=== PATIENT | male | born 1980 | race African-American/Black ===

== ENCOUNTER 2016-12-25 12:33 | Emergency (ER) | payer SELFPAY ==
[2016-12-25] MEDS ORDERED: HYDROCODONE/ACETAMINOPHEN 5-325 MG TABLET PO ONE (13:32)
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
[2016-12-25] MEDS ORDERED: HYDROMORPHONE HCL INJ/PF 2 MG/ML AMPULE IV ONE (13:54)
--- NOTE | 2016-12-25 14:18 | RADIOLOGY REPORT (SQ) ---
EXAM DESCRIPTION: ANKLE LEFT COMPLETE COMPLETED DATE/TIME: 12/25/2016 2:00 pm REASON FOR STUDY: ankle injury COMPARISON: None. NUMBER OF VIEWS: Three views. TECHNIQUE: AP, lateral, and oblique radiographic images acquired of the left ankle. LIMITATIONS: None. FINDINGS: MINERALIZATION: Normal. BONES: There is obliquely oriented fractures through the lateral malleolus of the distal fibula (Webe r a). There is minimal displacement of the fracture fragment is relation to each other. No other fr actures are identified. No dislocations. Degenerative osteophyte formation noted on the talus and t he adjacent navicular bone. JOINTS: No effusions. SOFT TISSUES: There is soft tissue swelling about the ankle/foot. OTHER: No other significant finding. IMPRESSION: Obliquely oriented fracture of the distal fibula (probable Bailey a). No other fractures identified. There is significant soft tissue swelling about the ankle. Degenerative changes of the hindfoot. TECHNICAL DOCUMENTATION: JOB ID: [id number] [employer]- All Rights Reserved
[2016-12-25 15:35] VITALS: BP 152/82
== END 2016-12-25 15:35 | disposition home or self-care (01) ==
LOC: ER 12:33
PROC: 2W3RX1Z Immobilization of Left Lower Leg using Splint (ICD-10-PCS; principal; 2016-12-25)
DX: S82.832A Other fracture of upper and lower end of left fibula, initial encounter for closed fracture (principal); M25.572 Pain in left ankle and joints of left foot; X58.XXXA Exposure to other specified factors, initial encounter; F17.210 Nicotine dependence, cigarettes, uncomplicated
CPT/HCPCS: 99283; 96374; 73610; 29515; J1170

== ENCOUNTER → 2017-07-22 | Outpatient (CLI) | payer SELFPAY ==
[2017-07-22 08:27] LABS: COLLECTION METHOD DRY COLLECTION; SPECIMEN CONTAINER POLYPROPYLENE CUP; SPERM MORPHOLOGY SENT TO REFERENC LAB
[2017-07-22 09:25] LABS: COLLECTION SITE ON-SITE; DAYS ABSTINENT 5 DAYS (2-7); SEMEN TESTING TIME 845
[2017-07-22 09:26] LABS: ROUND CELL CONC. 0.5 X10^6/mL (<5.1); SA DILUTION CNT 1 42; SA DILUTION CNT 2 50; SA DILUTION FACTOR 2; SA NONMOTILE CONCENTRATION 5.1 X10^6/mL; SA NONMOTILE COUNT1 54; SA NONMOTILE COUNT2 48; SA ROUND CELL COUNT1 5; SA ROUND CELL COUNT2 5; SA SPERM MOTILE CONC 4.1 X10^6mL; SPERM CONCENTRATION 9.2 X10^6/mL (>12.0); TOTAL SPERM COUNT 36.8 X10^6 (>33.0)
[2017-07-22 09:31] LABS: SPERM PROGRESSION 3
== END ==
LOC: LAB 07:58
PROVIDERS: ATTEND Specialist
DX: N46.9 Male infertility, unspecified (principal)
CPT/HCPCS: 36415; 89320

== ENCOUNTER 2018-10-16 01:52 | Emergency (ER) | payer SELFPAY ==
[2018-10-16 02:16] VITALS: BP 175/97
--- NOTE | 2018-10-16 02:51 | ER Document Report ---
Addendum entered and electronically signed by NI FERREIRA PA-C 10/16/18 03:06: Discharge - Discharge Clinical Impression: Tinea pedis Qualifiers: Laterality: bilateral Qualified Code(s): B35.3 - Tinea pedis Epicondylitis elbow, medial Qualifiers: Laterality: left Qualified Code(s): M77.02 - Medial epicondylitis, left elbow Condition: Good Disposition: HOME, SELF-CARE Instructions: Athletes Foot ([facility]), Medial Epicondylitis ([facility]) Additional Instructions: Home and rest medication as prescribed. Also as we talked about get a spray can of Lamisil is on your feet daily and sometimes twice a day or as directed by the can. Take your medication as prescribed. As we also discussed when you are home your feet air out and get some sunshine. Try to keep them dry as possible so after shower dry them thoroughly. As far as the elbow goes this is an overuse kind of injury as of indicated you writing left-handed will aggravate it all is well as using hammers or nail pounding motions would do the same. Ice down when you get home at night from work highly suggest a elbow band or pad to give you some support when use. Should you have any concerns or problems return to ER for recheck. Prescriptions: Fluconazole [Diflucan] 150 mg PO ASDIR #10 tablet Prednisone 10 mg PO ASDIR 6 Days #1 tab.ds.pk Forms: Elevated Blood Pressure, Return to Work Original Note: ED Skin Rash/Insect Bite/Abscs - General Chief Complaint: Rash Stated Complaint: FOOT RASH/LEFT ELBOW PAIN Time Seen by Provider: 10/16/18 02:37 Primary Care Provider: MARCEL NICHOLSON MD [Primary Care Provider] - Follow up as needed Mode of Arrival: Ambulatory Information source: Patient Notes: Patient is a 37-year-old male comes emergency room today with 2 complaints. First complaint is he has a rash on his feet and second 1 is he has left elbow pain. 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 He is ambidextrous he writes with his left hand and he does everything else with his right hand. His complaint is on his left elbow where he does most of his writing. Patient also states for the past 2 to 3 months he has had worsening foot condition that it is exceptionally itchy and foul-smelling. Patient does wear leather work boots that have no area out to them. And he does admit that that his feet are in moderate and water a lot sometimes. Denies any other medical problems. TRAVEL OUTSIDE OF THE [place] IN LAST 30 DAYS: No - HPI Patient complains to provider of: Skin rash/lesion, Tender/swollen area Onset: Other - Both for several weeks Onset/Duration: Gradual, Persistent, Worse Quality of pain: Burning, Sharp, Stabbing, Throbbing Severity: Moderate Pain Level: 3 Skin Character: Erythema, Patchy, Thickening, Warm Skin Temperature: Warm Quality of rash: Itchy Identify cause: Yes - Tinea pedis Exacerbated by: Denies Relieved by: Denies Similar symptoms previously: Yes Recently seen / treated by doctor: No - Related Data Allergies/Adverse Reactions: No Known Allergies Allergy (Verified 12/28/11 20:16) Past Medical History - General Information source: Patient - Social History Smoking Status: Never Smoker Cigarette use (# per day): No Chew tobacco use (# tins/day): No Smoking Education Provided: No Frequency of alcohol use: None Drug Abuse: None Family History: Reviewed & Not Pertinent, Arthritis, CVA, Hypertension. denies: CAD, DM, Hyperlipidemia, Malignancy, Thyroid Disfunction Patient has suicidal ideation: No Patient has homicidal ideation: No Renal/ Medical History: Denies: Hx Peritoneal Dialysis Musculoskeletal Medical History: Denies Hx Arthritis, Reports Hx Musculoskeletal Deformity, Reports Hx Musculoskeletal Trauma - left foot left toe right arm Skin Medical History: Reports Hx Cellulitis Traumatic Medical History: Reports: Hx Fractures - Immunizations Immunizations up to date: No Hx Diphtheria, Pertussis, Tetanus Vaccination: No Review of Systems - Review of Systems Constitutional: No symptoms reported EENT: No symptoms reported Cardiovascular: No symptoms reported Respiratory: No symptoms reported Gastrointestinal: No symptoms reported Genitourinary: No symptoms reported Male Genitourinary: No symptoms reported Musculoskeletal: See HPI, Joint pain, Muscle pain Skin: See HPI, Rash Hematologic/Lymphatic: No symptoms reported Neurological/Psychological: No symptoms reported -: Yes All other systems reviewed and negative Physical Exam - Vital signs Vitals: Temp Pulse Resp BP Pulse Ox 98.1 F 63 16 175/97 H 98 10/16/18 02:10 10/16/18 02:10 10/16/18 02:10 10/16/18 02:10 10/16/18 02:10 Interpretation: Hypertensive - Notes Notes: PHYSICAL EXAMINATION: GENERAL: Well-appearing, well-nourished and in no acute distress. HEAD: Atraumatic, normocephalic. EYES: Pupils equal round and reactive to light, extraocular movements intact, sclera anicteric, conjunctiva are normal. ENT: Nares patent, oropharynx clear without exudates. Moist mucous membranes. NECK: Normal range of motion, supple without lymphadenopathy LUNGS: Breath sounds clear to auscultation bilaterally and equal. No wheezes rales or rhonchi. HEART: Regular rate and rhythm without murmurs Musculoskeletal: Patient's area of concern is his left elbow. In anatomic position patient patient on palms up patient has pain on his medial epicondyle of the elbow. Point tenderness is noted to palpation. Increased pain in the specific epicondyle spot against resistance is noted as well. This is patient's right knee and hand and exaggeration of the right heel is causing discomfort and pain as well. Patient has good vascular exam with good cap refill in the nailbeds of the fingers of the left hand. Has good delivery assistant strength noted. NEUROLOGICAL: Cranial nerves grossly intact. Normal speech, normal gait. Normal sensory, motor exams PSYCH: Normal mood, normal affect. SKIN: Examination of the feet show a notable presentation of tinea pedis. Patient's feet bilaterally appear to have been wet and damp and then out of sunlight for a while. Patient has crustiness on top of his feet with the redness next to the soles from the sides of the soles. There is also cracking in between thetoes. Course - Vital Signs Vital signs: Temp Pulse Resp BP Pulse Ox 98.1 F 63 16 175/97 H 98 10/16/18 02:10 10/16/18 02:10 10/16/18 02:10 10/16/18 02:10 10/16/18 02:10 Discharge - Discharge Clinical Impression: Tinea pedis Qualifiers: Laterality: bilateral Qualified Code(s): B35.3 - Tinea pedis Epicondylitis elbow, medial Qualifiers: Laterality: left Qualified Code(s): M77.02 - Medial epicondylitis, left elbow Condition: Good Disposition: HOME, SELF-CARE Instructions: Athletes Foot ([facility]), Medial Epicondylitis ([facility]) Additional Instructions: Home and rest medication as prescribed. Also as we talked about get a spray can of Lamisil is on your feet daily and sometimes twice a day or as directed by the can. Take your medication as prescribed. As we also discussed when you are home your feet air out and get some sunshine. Try to keep them dry as possible so after shower dry them thoroughly. As far as the elbow goes this is an overuse kind of injury as of indicated you writing left-handed will aggravate it all is well as using hammers or nail pounding motions would do the same. Ice down when you get home at night from work highly suggest a elbow band or pad to give you some support when use. Should you have any concerns or problems return to ER for recheck. Prescriptions: Fluconazole [Diflucan] 150 mg PO ASDIR #10 tablet Prednisone 10 mg PO ASDIR 6 Days #1 tab.ds.pk Forms: Elevated Blood Pressure, Return to Work
== END 2018-10-16 03:15 | disposition home or self-care (01) ==
LOC: ER 01:52
DX: B35.3 Tinea pedis (principal); M77.02 Medial epicondylitis, left elbow
CPT/HCPCS: 99282

== ENCOUNTER 2018-11-13 07:07 | Emergency (ER) | payer SELFPAY ==
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
--- NOTE | 2018-11-13 08:26 | RADIOLOGY REPORT (SQ) ---
EXAM DESCRIPTION: HAND RIGHT 3 VIEWS COMPLETED DATE/TIME: 11/13/2018 8:06 am REASON FOR STUDY: right hand swelling/pain COMPARISON: None. EXAM PARAMETERS: NUMBER OF VIEWS: Three views. TECHNIQUE: AP, lateral and oblique radiographic images acquired of the right hand. LIMITATIONS: None. FINDINGS: MINERALIZATION: Normal. BONES: No acute fracture or dislocation. No worrisome bone lesions. JOINTS: No effusions. SOFT TISSUES: Soft tissue swelling. No foreign body. OTHER: No other significant finding. IMPRESSION: SOFT TISSUE SWELLING. NO BONY FINDINGS. TECHNICAL DOCUMENTATION: JOB ID: [id number] [employer]- All Rights Reserved Reading location - IP/workstation name: [email or web address]
[2018-11-13 09:55] LABS: ABSOLUTE EOSINOPHILS # (AUTO) 0.1 10^3/uL (0.0-0.6); ABSOLUTE LYMPHOCYTES (AUTO) 1.4 10^3/uL (0.5-4.7); ABSOLUTE MONOCYTES (AUTO) 0.9 10^3/uL (0.1-1.4); ABSOLUTE NEUT (AUTO) 9.7 10^3/uL (1.7-8.2); BASOPHILS % (AUTO) 0.2 % (0-2); EOSINOPHILS % (AUTO) 0.9 % (0-6); HEMATOCRIT 43.9 % (37.9-51.0); HEMOGLOBIN 14.5 g/dL (13.5-17.0); LYMPHOCYTES % (AUTO) 11.9 % (13-45); MEAN CORPUSCULAR VOLUME 91 fl (80-97); MONOCYTES % (AUTO) 7.4 % (3-13); PLATELET COUNT 255 10^3/uL (150-450); RED BLOOD COUNT 4.84 10^6/uL (4.35-5.55); RED CELL DISTRIBUTION WIDTH 14.1 % (11.5-14.0); SEGMENTED NEUTROPHILS % (AUTO) 79.6 % (42-78); TOTAL CELLS COUNTED % (AUTO) 100 %; WHITE BLOOD COUNT 12.2 10^3/uL (4.0-10.5)
[2018-11-13] MEDS ORDERED: AMMONIA INHALANTS 10 AMPUL/BOX IH ONE ×2 (10:16→10:17)
[2018-11-13 10:17] LABS: ALANINE AMINOTRANSFERASE 38 U/L (21-72); ALKALINE PHOSPHATASE 77 U/L (38-126); ANION GAP 10 (5-19); ASPARTATE AMINO TRANSFERASE 30 U/L (17-59); BILIRUBIN,DIRECT 0.2 mg/dL (0.0-0.4); BILIRUBIN,TOTAL 0.4 mg/dL (0.2-1.3); BLOOD UREA NITROGEN 7 mg/dL (7-20); CALCIUM 9.4 mg/dL (8.4-10.2); CARBON DIOXIDE 27 mmol/L (22-30); CHLORIDE 109 mmol/L (98-107); GLUCOSE 102 mg/dL (75-110); SODIUM 145.7 mmol/L (137-145); TOTAL PROTEIN 6.9 g/dL (6.3-8.2)
[2018-11-13 10:18] LABS: C-REACTIVE PROTEIN < 5.0 mg/L (<10.0)
[2018-11-13 10:32] LABS: URINE AMPHETAMINES SCREEN NEGATIVE; URINE BARBITURATES SCREEN NEGATIVE; URINE BENZODIAZEPINES SCREEN NEGATIVE; URINE COCAINE SCREEN NEGATIVE; URINE MARIJUANA (THC) SCREEN NEGATIVE; URINE METHADONE SCREEN NEGATIVE; URINE PHENCYCLIDINE SCREEN NEGATIVE
[2018-11-13 10:46] LABS: ERYTHROCYTE SEDIMENTATION RATE 8 mm/hr (0-15)
[2018-11-13] MEDS ORDERED: CLINDAMYCIN 900 MG/D5W RTU 900 MG/50 ML RTUPB IV ONE ×2 (11:50→18:00)
[2018-11-13] MEDS ORDERED: HYDROMORPHONE HCL INJ/PF 2 MG/ML AMPULE IV ONE (14:20)
--- NOTE | 2018-11-13 14:27 | ER Document Report ---
Doctor's Note Notes: 11/13/18 14:25 I was asked by the nurse practitioner to come see this patient to decide what to do with his hand. I was told that the patient was refusing any and all treatment and was going to leave AMA. When I saw the patient he was sleeping and very difficult to arouse at all. He did appear to possibly be under the influence of some sort of sedating substance. He did slightly arouse to the painful stimulation of attempting to extend the right third finger. The hand is swollen and most of the discomfort and problem seems to be originating in the third palm are flexor tendon region. I did advise the nurse practitioner that the patient should not be allowed to leave AMA, this is a very high risk situation that should be treated with IV antibiotics and obtain an MRI, and to involuntarily restrain if necessary. I was informed that several hours later the patient began to wake up, was alert and oriented, and was agreeable to getting the MRI done.
--- NOTE | 2018-11-13 14:38 | RADIOLOGY REPORT (SQ) ---
EXAM DESCRIPTION: MRI RT UPPER EXTREMITY COMBO COMPLETED DATE/TIME: 11/13/2018 1:47 pm REASON FOR STUDY: hand swelling, pain, unknown injury COMPARISON: None. CONTRAST TYPE AND DOSE: 15 mL Dotarem. RENAL FUNCTION: None required. The patient is less than 50 years old. TECHNIQUE: Right hand images acquired and stored on PACS. Multiplanar images before and after contr ast include fat sensitive sequences as T1, fluid sensitive sequences as FST2/STIR, cartilage sensitiv e sequences as FSPD, gradient echo sequences. FINDINGS: There is a palmar subcutaneous abscess at the level of the 3rd digit proximal phalanx whic h measures 1 cm AP x 9 mm craniocaudad by 1.7 cm transverse. There is adjacent enhancement of the co mmon flexor tendon sheath in some mild increased tendon signal to the level of the mid 3rd metacarpal . Diffuse subcutaneous swelling and enhancement throughout the metacarpal phalangeal region. Questi onable marrow enhancement in the 3rd proximal phalanx but difficult to fully characterize given field inhomogeneity artifact. . IMPRESSION: There is a palmar subcutaneous abscess at the level of the 3rd digit proximal phalanx wh ich measures 1 cm AP x 9 mm craniocaudad by 1.7 cm transverse. There is adjacent enhancement of the common flexor tendon sheath in some mild increased tendon signal to the level of the mid 3rd metacarp al. Diffuse subcutaneous swelling and enhancement throughout the metacarpal phalangeal region. Quest ionable marrow enhancement in the 3rd proximal phalanx but difficult to fully characterize given fiel d inhomogeneity artifact. COMMENT: Consider hand surgical consultation. TECHNICAL DOCUMENTATION: JOB ID: [id number] [place]-72 2010 [employer]- All Rights Reserved Reading location - IP/workstation name: [email or web address]
[2018-11-13] MEDS ORDERED: NICOTINE 21 MG/24 HR PATCH.TD24 TD ONE (15:31)
[2018-11-13] MEDS ORDERED: MORPHINE SULFATE 10 MG/ML INJ IV ONE (19:39)
[2018-11-13 19:46] VITALS: BP 154/91
== END 2018-11-13 19:50 | disposition short-term general hospital (02) ==
LOC: ER 07:07
DX: M79.641 Pain in right hand (principal); L03.113 Cellulitis of right upper limb; M65.9 Synovitis and tenosynovitis, unspecified; R40.0 Somnolence; F17.200 Nicotine dependence, unspecified, uncomplicated
CPT/HCPCS: 99285; 96375; 96365; 96366; 36415; 87040; 80307 ×2; 85025; 85652; 86140; 80053; 73220; 73130; A9576; J3490; J2270

== ENCOUNTER 2019-04-10 01:03 | Emergency (ER) | payer BC ==
--- NOTE | 2019-04-10 02:43 | RADIOLOGY REPORT (SQ) ---
EXAM DESCRIPTION: XR FINGERS COMPLETED DATE/TME: 04/10/2019 00:00 CLINICAL HISTORY: 38 years Male, bone pain and swelling COMPARISON: None. Findings: Moderate swelling of the left second finger. Bones, joints, and soft tissues of the LEFT XR FINGERS three views appear otherwise unremarkable. IMPRESSION: Swelling.
[2019-04-10] MEDS ORDERED: KETOROLAC TROMETHAMINE 60 MG/2 ML SDV IM ONE (04:19)
--- NOTE | 2019-04-10 04:25 | ER Document Report ---
HPI - HPI Time Seen by Provider: 04/10/19 04:03 Pain Level: 5 Context: Patient is a 38-year-old male that comes emergency department for chief complaint of left index finger pain and swelling. 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 He has not taken anything for it. He denies any other locations of pain. He is still able to bend finger. He denies redness of the finger or bleeding recently from the finger. He denies fever or chills. He denies IV drugs. He denies any daily medications or diagnosed medical problems. He denies any other complaints. - CONSTITUTIONAL Constitutional: DENIES: Fever, Chills - REPRODUCTIVE Reproductive: DENIES: : Past Medical History - General Information source: Patient - Social History Smoking Status: Current Some Day Smoker Frequency of alcohol use: None Drug Abuse: None Lives with: Family Family History: Reviewed & Not Pertinent, Arthritis, CVA, Hypertension. denies: CAD, DM, Hyperlipidemia, Malignancy, Thyroid Disfunction Patient has suicidal ideation: No Patient has homicidal ideation: No Renal/ Medical History: Denies: Hx Peritoneal Dialysis Musculoskeletal Medical History: Denies Hx Arthritis, Reports Hx Musculoskeletal Deformity, Reports Hx Musculoskeletal Trauma - left foot left toe right arm Skin Medical History: Reports Hx Cellulitis Traumatic Medical History: Reports: Hx Fractures - Immunizations Immunizations up to date: Yes Hx Diphtheria, Pertussis, Tetanus Vaccination: Yes Vertical Provider Document - CONSTITUTIONAL General Appearance: WD/WN, No Apparent Distress - INFECTION CONTROL TRAVEL OUTSIDE OF THE [place] IN LAST 30 DAYS: No - HEENT HEENT: Atraumatic, Normocephalic - NECK Neck: Normal Inspection - RESPIRATORY Respiratory: Breath Sounds Normal, No Respiratory Distress - CARDIOVASCULAR Cardiovascular: Regular Rate, Regular Rhythm - GI/ABDOMEN Gastrointestinal: Abdomen Soft, Abdomen Non-Tender - BACK Back: Normal Inspection - MUSCULOSKELETAL/EXTREMETIES Musculoskeletal/Extremeties: MAEW, FROM, Tender - The left index finger has some swelling near the PIP and over the middle of the finger generally. However the range of motion is still intact with good strength against flexion and extension, normal capillary refill and sensation, normal hand exam, no abnormal erythema, no signs of wounds, and no extreme tenderness. Course - Re-evaluation Re-evalutation: There is soft tissue swelling of the left index finger but there is no sign of infection, range of motion is intact, no evidence of compartment syndrome. No history of gout. Patient is very active with a labor-intensive job and he is left-handed. X-ray is negative for any acute findings. Discussed with patient. Decision was made to provide him with anti-inflammatories, ice, rest, work release, finger protection splint because he is very active, and orthopedic referral. Discussed return precautions for any signs of infection or worsening symptoms. Patient states understanding and agreement. - Vital Signs Vital signs: Temp Pulse Resp BP Pulse Ox 98.2 F 78 16 159/76 H 97 04/10/19 01:07 04/10/19 01:07 04/10/19 01:07 04/10/19 01:07 04/10/19 01:07 Procedures - Immobilization Left index finger Pre-Proc Neuro Vasc Exam: Normal Immobilizer type: Finger protection Performed by: PCT Post-Proc Neuro Vasc Exam: Normal Alignment checked and good: Yes Discharge - Discharge Clinical Impression: Finger pain, left, Finger swelling Condition: Stable Disposition: HOME, SELF-CARE Additional Instructions: Your exam shows soft tissue swelling but the x-ray is normal and your hand does not indicate an infection or other concerning finding at this time. I recommend that you wear the finger protection splint, take the anti-inflammatory, ice your finger 3-4 times a day for 10 to 15 minutes, and use the finger less to allow this to heal. If symptoms continue follow-up with the orthopedic referral for additional management of your finger. Come back if you worsen including increased swelling, developing redness, severe worsening pain, fever, inability to bend your finger, or any other concerning or worsening symptoms. Prescriptions: Naproxen 500 mg PO BID PRN #20 tablet PRN Reason: Forms: Return to Work Referrals: STACI SINGLETON DO [ACTIVE STAFF] - Follow up in 1 week
[2019-04-10 05:03] VITALS: BP 153/100
== END 2019-04-10 05:24 | disposition home or self-care (01) ==
LOC: ER 01:03
DX: M79.645 Pain in left finger(s) (principal); M79.89 Other specified soft tissue disorders; F17.200 Nicotine dependence, unspecified, uncomplicated
CPT/HCPCS: 73140; J1885

== ENCOUNTER 2019-04-11 18:55 | Observation (INO) | payer BC ==
--- NOTE | 2019-04-11 19:37 | ER Document Report ---
ED Medical Screen (RME) - General Chief Complaint: Hand Swelling Stated Complaint: LEFT INDEX FINGER/PAIN, SWELLING Time Seen by Provider: 04/11/19 19:20 Primary Care Provider: LEEANNA RIVAS MD [Primary Care Provider] - Follow up as needed Notes: 38-year-old male seen here yesterday for left finger swelling presents today stating the swelling and pain have increased. Patient states he is now unable to bend his DIP of his left index finger and there is some erythema on the lateral aspect of the left index finger. Denies fevers or chills, denies shortness of breath or chest pain, patient states that he has been wearing the splint and adhering to the discharge instructions given to him yesterday. Exam: Well-appearing in no acute distress, left index finger swollen and worse at the DIP joint and patient is unable to bend the DIP secondary to edema, there is some mild erythema on the lateral aspect of the index finger, brisk cap refill. I have greeted and performed a rapid initial assessment of this patient. A comprehensive ED assessment and evaluation of the patient, analysis of test results and completion of medical decision making process will be conducted by an additional ED providers. TRAVEL OUTSIDE OF THE [place] IN LAST 30 DAYS: No - Related Data Allergies/Adverse Reactions: No Known Allergies Allergy (Verified 12/28/11 20:16) Past Medical History - Social History Frequency of alcohol use: Social Drug Abuse: None Renal/ Medical History: Denies: Hx Peritoneal Dialysis Musculoskeltal Medical History: Denies Hx Arthritis, Reports Hx Musculoskeletal Deformity, Reports Hx Musculoskeletal Trauma - left foot left toe right arm Skin Medical History: Reports Hx Cellulitis Traumatic Medical History: Reports: Hx Fractures - Immunizations Immunizations up to date: Yes Hx Diphtheria, Pertussis, Tetanus Vaccination: Yes Physical Exam - Vital signs Vitals: Temp Resp BP Pulse Ox 98.2 F 20 163/93 H 98 04/11/19 19:02 04/11/19 19:02 04/11/19 19:02 04/11/19 19:02 Course - Vital Signs Vital signs: Temp Pulse Resp BP Pulse Ox 98.2 F 20 163/93 H 98 04/11/19 19:02 04/11/19 19:02 04/11/19 19:02 04/11/19 19:02 Doctor's Discharge - Discharge Referrals: LEEANNA RIVAS MD [Primary Care Provider] - Follow up as needed
[2019-04-11] MEDS ORDERED: CLINDAMYCIN 900 MG/D5W RTU 900 MG/50 ML RTUPB IV ONE (21:44)
--- NOTE | 2019-04-11 21:44 | ER Document Report ---
HPI - HPI Time Seen by Provider: 04/11/19 19:20 Pain Level: 4 Notes: 30-year-old male presenting for the second time to the emergency department with complaints of left index finger swelling. Patient is left-hand dominant. He reports the swelling has been going on for several days. He denies any history of injury to this area, denies history of gout. He is limited range of motion and states he is unable to flex his finger. There is slight erythema noted as well as an area of induration noted. He denies any fevers. - CONSTITUTIONAL Constitutional: DENIES: Fever - REPRODUCTIVE Reproductive: DENIES: : - MUSCULOSKELETAL Musculoskeletal: REPORTS: Extremity pain - lt hand Past Medical History - General Information source: Patient - Social History Smoking Status: Current Every Day Smoker Frequency of alcohol use: Social Drug Abuse: None Family History: Reviewed & Not Pertinent, Arthritis, CVA, Hypertension. denies: CAD, DM, Hyperlipidemia, Malignancy, Thyroid Disfunction Patient has suicidal ideation: No Patient has homicidal ideation: No Renal/ Medical History: Denies: Hx Peritoneal Dialysis Musculoskeletal Medical History: Denies Hx Arthritis, Reports Hx Musculoskeletal Deformity, Reports Hx Musculoskeletal Trauma - left foot left toe right arm Skin Medical History: Reports Hx Cellulitis Traumatic Medical History: Reports: Hx Fractures Past Surgical History: Reports: Hx Orthopedic Surgery - rt hand surgery - Immunizations Immunizations up to date: Yes Hx Diphtheria, Pertussis, Tetanus Vaccination: Yes Vertical Provider Document - CONSTITUTIONAL Notes: PHYSICAL EXAMINATION: GENERAL: Well-appearing, well-nourished and in no acute distress. HEAD: Atraumatic, normocephalic. EYES: Pupils equal round extraocular movements intact, conjunctiva are normal. ENT: Nares patent NECK: Normal range of motion LUNGS: No respiratory distress Musculoskeletal: Edema noted to left second digit, finger in slight flexion position, pain with passive extension, slight erythema noted. NEUROLOGICAL: Normal speech, normal gait. PSYCH: Normal mood, normal affect. SKIN: Warm, Dry, normal turgor, no rashes or lesions noted. - INFECTION CONTROL TRAVEL OUTSIDE OF THE [place] IN LAST 30 DAYS: No Course - Re-evaluation Re-evalutation: 04/11/19 21:44 Patient's examination is concerning for flexor tendo synovitis. Dr. Vides at [facility] to evaluate. 04/11/19 22:[address] Wertman, on-call orthopedic surgeon who is accepting this patient for admission. - Vital Signs Vital signs: Temp Pulse Resp BP Pulse Ox 98.2 F 20 163/93 H 98 04/11/19 19:02 04/11/19 19:02 04/11/19 19:02 04/11/19 19:02 - Laboratory Result Diagrams: 04/11/19 21:31 Discharge - Discharge Clinical Impression: Cellulitis, finger Qualifiers: Laterality: left Qualified Code(s): L03.012 - Cellulitis of left finger Condition: Stable Disposition: ADMITTED INPATIENT Admitting Provider: Ortho-Dr. Meek Unit Admitted: Medical Floor
--- NOTE | 2019-04-11 21:48 | RADIOLOGY REPORT (SQ) ---
EXAM DESCRIPTION: XR FINGERS COMPLETED DATE/TME: 04/11/2019 20:53 CLINICAL HISTORY: 38 years, Male, index finger swelling COMPARISON: EXAM DESCRIPTION: CLINICAL HISTORY: index finger swelling COMPARISON: None FINDINGS: 3 view(s) submitted. No fracture or dislocation is identified. Bone marrow attenuation is unremarkable. No radiopaque foreign body is identified. IMPRESSION: No acute fracture or dislocation. NUMBER OF VIEWS: TECHNIQUE: LIMITATIONS: None. FINDINGS: IMPRESSION: copyright 2010 [employer]- All Rights Reserved
[2019-04-11 21:50] LABS: ABSOLUTE EOSINOPHILS # (AUTO) 0.3 10^3/uL (0.0-0.6); ABSOLUTE LYMPHOCYTES (AUTO) 1.9 10^3/uL (0.5-4.7); ABSOLUTE MONOCYTES (AUTO) 1.5 10^3/uL (0.1-1.4); ABSOLUTE NEUT (AUTO) 7.5 10^3/uL (1.7-8.2); BASOPHILS % (AUTO) 0.3 % (0-2); EOSINOPHILS % (AUTO) 2.3 % (0-6); HEMATOCRIT 38.6 % (37.9-51.0); HEMOGLOBIN 12.9 g/dL (13.5-17.0); LYMPHOCYTES % (AUTO) 17.1 % (13-45); MEAN CORPUSCULAR HEMOGLOBIN 30.2 pg (27.0-33.4); MEAN CORPUSCULAR HGB CONC 33.3 g/dL (32.0-36.0); MEAN CORPUSCULAR VOLUME 91 fl (80-97); PLATELET COUNT 299 10^3/uL (150-450); RED BLOOD COUNT 4.25 10^6/uL (4.35-5.55); RED CELL DISTRIBUTION WIDTH 13.8 % (11.5-14.0); SEGMENTED NEUTROPHILS % (AUTO) 67.3 % (42-78); TOTAL CELLS COUNTED % (AUTO) 100 %; WHITE BLOOD COUNT 11.2 10^3/uL (4.0-10.5)
--- NOTE | 2019-04-12 07:40 | PDOC H&P ---
History of Present Illness Admission Date/PCP: 04/11/19 22:05 LEEANNA RIVAS MD Patient complains of: Pain left index finger History of Present Illness: LEELA RENDON JR is a 38 year old male presented to emergency room with increasing pain of his left index finger. Initial presentation was Thursday evening patient was started on naproxen and sent home however over the next 24 hours continued to have pain in the index finger with swelling. He states he attempted to decompress the swelling without success. Since then he is continued to have pain and discomfort worse with any motion. Does have history of previous infection of the right hand which was treated with irrigation and debridement. Pain 4/5. Past Medical History Musculoskeltal Medical History: Denies: Arthritis Past Surgical History Past Surgical History: Reports: Orthopedic Surgery - rt hand surgery Social History Smoking Status: Current Every Day Smoker - Advance Directive Resuscitation Status: Full Code Family History Family History: Reviewed & Not Pertinent, Arthritis, CVA, Hypertension. denies: CAD, DM, Hyperlipidemia, Malignancy, Thyroid Disfunction Parental Family History Reviewed: No Children Family History Reviewed: No Sibling(s) Family History Reviewed.: No Medication/Allergy Home Medications: Sulfamethoxazole/Trimethoprim [Bactrim Ds Tablet] 1 each PO BID #14 tablet 04/29/16 Hydrocodone/Acetaminophen [[place] 5-325 mg Tablet] 1 tab PO Q6 #20 tablet 12/25/16 Fluconazole [Diflucan] 150 mg PO ASDIR #10 tablet 10/16/18 Prednisone 10 mg PO ASDIR 6 Days #1 tab.ds.pk 10/16/18 Naproxen 500 mg PO BID PRN #20 tablet 04/10/19 Allergies/Adverse Reactions: No Known Allergies Allergy (Verified 12/28/11 20:16) Review of Systems All systems: as per PMH Constitutional: ABSENT: chills, fever(s), headache(s), weight gain, weight loss Eyes: ABSENT: visual disturbances Ears: ABSENT: hearing changes Cardiovascular: ABSENT: chest pain, dyspnea on exertion, edema, orthropnea, palp itations Respiratory: ABSENT: cough, hemoptysis Gastrointestinal: ABSENT: abdominal pain, constipation, diarrhea, hematemesis, hematochezia, nausea, vomiting Genitourinary: ABSENT: dysuria, hematuria Musculoskeletal: PRESENT: as per HPI Integumentary: ABSENT: rash, wounds Neurological: ABSENT: abnormal gait, abnormal speech, confusion, dizziness, f ocal weakness, syncope Psychiatric: ABSENT: anxiety, depression, homidical ideation, suicidal ideation Endocrine: ABSENT: cold intolerance, heat intolerance, menstrual abnormalities, polydipsia, polyuria Hematologic/Lymphatic: ABSENT: easy bleeding, easy bruising, lymphadenopathy Physical Exam Vital Signs: Temp Pulse Resp BP Pulse Ox 98.0 F 78 17 142/67 H 98 04/12/19 05:13 04/12/19 05:13 04/12/19 05:13 04/12/19 05:13 04/12/19 05:13 Intake & Output 04/11/19 04/12/19 04/13/19 06:59 06:59 06:59 Intake Total 50 Balance 50 Weight 80.2 kg General appearance: PRESENT: no acute distress, well-developed, well-nourished Head exam: PRESENT: atraumatic, normocephalic Eye exam: PRESENT: conjunctiva pink, EOMI, PERRLA. ABSENT: scleral icterus Ear exam: PRESENT: normal external ear exam Mouth exam: PRESENT: moist, tongue midline Neck exam: PRESENT: full ROM. ABSENT: carotid bruit, JVD, lymphadenopathy, thyromegaly Cardiovascular exam: PRESENT: RRR. ABSENT: diastolic murmur, rubs, systolic murmur Pulses: PRESENT: normal dorsalis pedis pul, +2 pedal pulses bilateral Vascular exam: PRESENT: normal capillary refill GI/Abdominal exam: PRESENT: normal bowel sounds, soft. ABSENT: distended, guarding, mass, organolmegaly, rebound, tenderness Rectal exam: PRESENT: deferred Musculoskeletal exam: PRESENT: other - Left index finger: Swelling noted along the ulnar aspect of the proximal phalanx with palpable fluctuance. Pain with passive flexion/extension. Mild swelling noted along this region. Mild tenderness along the A1 nazia. No streaking erythema. Hypoesthesias along the ulnar aspect of the digit. Normal skin turgor. Neurological exam: PRESENT: alert, awake, oriented to person, oriented to place, oriented to time, oriented to situation, CN II-XII grossly intact. ABSENT: motor sensory deficit Psychiatric exam: PRESENT: appropriate affect, normal mood. ABSENT: homicidal ideation, suicidal ideation Skin exam: PRESENT: dry, intact, warm. ABSENT: cyanosis, rash Results Laboratory Results: 04/11/19 21:31 04/11/19 21:31 WBC 11.2 H RBC 4.25 L Hgb 12.9 L Hct 38.6 MCV 91 MCH 30.2 MCHC 33.3 RDW 13.8 Plt Count 299 Seg Neutrophils % 67.3 Impressions: Finger X-Ray 04/11/19 20:53 IMPRESSION: No acute fracture or dislocation. NUMBER OF VIEWS: TECHNIQUE: LIMITATIONS: None. FINDINGS: IMPRESSION: copyright 2010 [employer]- All Rights Reserved Status: Image reviewed by me - I have reviewed patient's radiographs which demonstrate soft tissue swelling no evidence of foreign body or osseous abnormality. Assessment & Plan - Diagnosis (1) Abscess of finger of left hand Is this a current diagnosis for this admission?: Yes Plan: Patient has evidence of abscess along the volar ulnar aspect of the left index finger. At this point I have recommended operative intervention which includes irrigation and debridement left index finger. Risks and benefits have been explained risks including neurovascular risk, recurrent infection, postoperative pain and postoperative stiffness patient verbalized understanding consented for surgical procedure.
[2019-04-12] MEDS: MORPHINE SULFATE 10 MG/ML INJ IV PRN ×2 (07:42→14:59)
[2019-04-12] MEDS ORDERED: FENTANYL CITRATE INJ/PF 100 MCG/2 ML AMPUL ONE (18:37)
[2019-04-12] MEDS ORDERED: LIDOCAINE 2% INJ-PF (20 MG/ML) 10 ML AMPUL ONE (18:37)
[2019-04-12] MEDS ORDERED: MIDAZOLAM 2 MG/2 ML INJ ONE (18:37)
[2019-04-12] MEDS ORDERED: PROPOFOL INJ 200 MG/20 ML VIAL IV ONE (18:38)
[2019-04-12] MEDS ORDERED: FENTANYL CITRATE INJ/PF 100 MCG/2 ML AMPUL IV PRN ×3 (19:05)
[2019-04-12] MEDS ORDERED: MEPERIDINE HCL/PF INJ 25 MG/1 ML DISP.SYRIN IV PRN (19:05)
[2019-04-12] MEDS ORDERED: ONDANSETRON HCL INJ/PF 4 MG/2 ML SDV IV PRN (19:05)
[2019-04-12] MEDS ORDERED: DIPHENHYDRAMINE HCL 50 MG/ML VIAL IV PRN (19:05)
[2019-04-12] MEDS ORDERED: PROMETHAZINE HCL INJ 25 MG/1 ML VIAL IV PRN ×2 (19:05)
[2019-04-12] MEDS ORDERED: OXYCODONE-ACETAMINOPHEN 5-325 MG TABLET PO PRN ×2 (19:05)
[2019-04-12] MEDS ORDERED: LIDOCAINE 1% INJ (10 MG/ML) 10 ML MDV INJ ONE (19:48)
--- NOTE | 2019-04-12 20:15 | Operative Report ---
Operative Report DATE OF SURGERY: 04/12/19 PREOPERATIVE DIAGNOSIS: Abscess left index finger POSTOPERATIVE DIAGNOSIS: Abscess left index finger. Septic flexor tenosynovitis OPERATION: Irrigation debridement finger abscess with irrigation debridement tendon sheath left index finger SURGEON: STACI SINGLETON ANESTHESIA: LMAC TISSUE REMOVED OR ALTERED: aerobic anaerobic AFB and fungal COMPLICATIONS: None ESTIMATED BLOOD LOSS: Minimal PROCEDURE: Indication for above procedure: 38-year-old male who presented to emergency room with increasing redness swelling and pain of his left index finger without known injury. Does have history of previous infection in the right hand which was treated with antibiotics. Patient was given dose of clindamycin. Orthopedic consultation demonstrated possible abscess and flexor tenosynovitis. At that point I discussed treatment options and decision was made to proceed with operative intervention. Procedure In Detail: Patient was seen and evaluated in the preoperative holding area. The LEFT upper extremity was initialized and marked. Patient was taken back to the operative room where transferred to the operative table. Once they were adequately anesthetized a nonsterile tourniquet was placed on the upper extremity. A surgical team debriefing was performed ensuring all instrumentation was available, the surgical procedure was discussed with possible concerns reviewed. A digital block was performed utilizing 10 mL of 1% lidocaine without epinephrine. The upper extremity was prepped with chlorhexidine and alcohol and draped in a sterile fashion. A timeout was done identifying correct patient, procedure and extremity everyone in attendance agree with this and verbalized no concerns. The extremity was elevated the tourniquet was inflated to 250 mmHg. Oblique incision was made over the middle phalanx at the level of patient's likely abscess. Blunt dissection was performed radial and ulnar neurovascular bundles were protected copious amount of purulent material was expressed. Cultures were obtained. No evidence of foreign body. The wound was copiously irrigated with normal saline. Given the amount of purulence decision was made to proceed with irrigation and debridement of the flexor sheath due to concerns of concomitant flexor tenosynovitis. The sheath was open at the A5 nazia. Second skin incision was made approximately at the A1 nazia. The A1 nazia was then released small amount of fluid was encountered at the A1 nazia but no purulent material. The wounds were copiously irrigated with normal saline. Branden drain was then passed from the A5 nazia to the A1 nazia small holes were placed in the Branden drain and irrigation was filtered into the Branden drain. Any nonviable tissue including skin and subcutaneous tissue was excised. Branden drain was left in place. Skin incision was closed with interrupted 4-0 nylon suture. Sponge counts, instrument counts, needle counts counts were correct. Patient was then awoken from anesthesia. Transferred from the operating room table to the operating room stretcher. There was no intraoperative complications patient tolerated procedure well stable to PACU. Postoperative plan: Patient will follow-up as scheduled for wound check. They will call with any questions or concerns.
[2019-04-12] MEDS: OXYCODONE-ACETAMINOPHEN 5-325 MG TABLET PO PRN (21:39)
[2019-04-12] MEDS: CEFTRIAXONE 1 GM/D5W RTU 1 GM/50 ML RTUPB IV SCH (21:41)
[2019-04-12] MEDS: CLINDAMYCIN 600 MG/D5W RTU 600 MG/50 ML RTUPB IV SCH (22:41)
[2019-04-13] MEDS: OXYCODONE-ACETAMINOPHEN 5-325 MG TABLET PO PRN ×2 (05:40→13:39)
[2019-04-13] MEDS: CLINDAMYCIN 600 MG/D5W RTU 600 MG/50 ML RTUPB IV SCH ×3 (05:44→21:34)
--- NOTE | 2019-04-13 06:30 | PDOC PROGRESS REPORT ---
Subjective Progress Note for:: 04/13/19 Subjective:: Patient lying in bed comfortably pain control. No issues overnight. Denies fever chills or sweats. Reason For Visit: FINGER CELLULITIS Physical Exam Vital Signs: Temp Pulse Resp BP Pulse Ox 97.9 F 75 16 132/72 H 96 04/13/19 03:28 04/13/19 03:28 04/13/19 03:28 04/13/19 03:28 04/13/19 03:28 Intake & Output 04/11/19 04/12/19 04/13/19 06:59 06:59 06:59 Intake Total 50 1666 Output Total 5 Balance 50 1661 Weight 80.2 kg Musculoskeletal exam: PRESENT: other - Left index finger: Dressing intact no elizabeth inage. Cap refill less than 2 seconds. Normal skin turgor. Intact sensation to light touch. Results Laboratory Results: 04/11/19 21:31 Impressions: Finger X-Ray 04/11/19 20:53 IMPRESSION: No acute fracture or dislocation. NUMBER OF VIEWS: TECHNIQUE: LIMITATIONS: None. FINDINGS: IMPRESSION: copyright 2011 [employer]- All Rights Reserved Assessment & Plan - Diagnosis (1) Abscess of finger of left hand Is this a current diagnosis for this admission?: Yes Plan: Postop day #1 status post irrigation and debridement left index finger flexor sheath IV antibiotics clindamycin and Rocephin will await cultures which cultures results are evident patient will be discharged home with p.o. Bactrim. Anticipa te discharge on 04/14/2019 - Time Time Spent with patient: Less than 15 minutes
[2019-04-13] MEDS ORDERED: PROPOFOL INJ 200 MG/20 ML VIAL IV ONE (06:52)
[2019-04-13] MEDS ORDERED: INFLUENZA QUAD (6MOS+) 2019-20 VAC 0.5 ML SYR IM ONE (08:00)
[2019-04-13] MEDS: CEFTRIAXONE 1 GM/D5W RTU 1 GM/50 ML RTUPB IV SCH (17:59)
[2019-04-14] MEDS: CLINDAMYCIN 600 MG/D5W RTU 600 MG/50 ML RTUPB IV SCH ×2 (05:03→13:07)
[2019-04-14] MEDS: OXYCODONE-ACETAMINOPHEN 5-325 MG TABLET PO PRN (09:02)
[2019-04-14 13:52] VITALS: BP 141/80
== END 2019-04-14 15:00 | disposition home or self-care (01) ==
LOC: ER 18:55 → INTOOBSV 22:05 → EH 22:05 → 3N 04-12 00:25 → 3W 04-12 16:32
PROVIDERS: ADMIT Orthopaedic Surgery; ATTEND Orthopaedic Surgery
PROC: 0L980ZZ Drainage of Left Hand Tendon, Open Approach (ICD-10-PCS; principal; 2019-04-12 18:15)
DX: L02.512 Cutaneous abscess of left hand (principal); M65.842 Other synovitis and tenosynovitis, left hand; F17.200 Nicotine dependence, unspecified, uncomplicated
CPT/HCPCS: 99284; 36415; 87070; 87205; 85025; 87075; 87077; 87186; 73140; 01810; 26020; G0378 ×5; J2250; J3010; J3490 ×2; J2270; J2704 ×2; J0696 ×2

== ENCOUNTER 2020-04-19 00:50 | Emergency (ER) | payer SELFPAY ==
[2020-04-19 00:59] VITALS: BP 182/95
[2020-04-19] MEDS ORDERED: HYDROCODONE/ACETAMINOPHEN 5-325 MG (6 TAB/ER DISP) PO PRN (01:19)
--- NOTE | 2020-04-19 01:20 | ER Document Report ---
ED General - General Chief Complaint: Toothache Stated Complaint: TOOTH ACHE Time Seen by Provider: 04/19/20 01:13 Mode of Arrival: Ambulatory Information source: Patient Notes: Patient is a 39-year-old -[place] male coming in today with right lower jaw pain that radiates to his ear. No fevers and chills. No trouble swallowing or breathing. TRAVEL OUTSIDE OF THE [place] IN LAST 30 DAYS: No - Related Data Allergies/Adverse Reactions: No Known Allergies Allergy (Verified 12/28/11 20:16) Past Medical History - Social History Smoking Status: Current Every Day Smoker Frequency of alcohol use: None Drug Abuse: None Family History: Reviewed & Not Pertinent, Arthritis, CVA, Hypertension. denies: CAD, DM, Hyperlipidemia, Malignancy, Thyroid Disfunction Patient has homicidal ideation: No Renal/ Medical History: Denies: Hx Peritoneal Dialysis Musculoskeletal Medical History: Denies Hx Arthritis, Reports Hx Musculoskeletal Deformity, Reports Hx Musculoskeletal Trauma - left foot left toe right arm Skin Medical History: Reports Hx Cellulitis Traumatic Medical History: Reports: Hx Fractures Past Surgical History: Reports: Hx Orthopedic Surgery - rt hand surgery - Immunizations Immunizations up to date: Yes Hx Diphtheria, Pertussis, Tetanus Vaccination: Yes Review of Systems - Review of Systems Notes: Constitutional: No fevers. No chills. EENT: No eye redness. No eye pain. +ear pain. No sore throat.+ Dental pain Cardiovascular: No chest pain. No palpitations. Respiratory: No cough. No shortness of breath. No respiratory distress. Gastrointestinal: No abdominal pain. No nausea, vomiting, or diarrhea. Genitourinary: Atraumatic. No lesions. No pain. No discharge. Musculoskeletal: Atraumatic. No swelling. No deformities. Skin: No rash or lesions. Lymphatic: No swollen lymph nodes. Neurologic: No headache. No syncope. Psychiatric: No suicidal or homicidal ideation. Physical Exam - Vital signs Vitals: Temp Pulse Resp BP Pulse Ox 98.4 F 75 18 182/95 H 96 04/19/20 00:58 04/19/20 00:58 04/19/20 00:58 04/19/20 00:58 04/19/20 00:58 - Notes Notes: General: Well-developed, well-nourished. In no acute distress. Non-toxic appearing. Cardiac: Well-perfused. Regular rate and rhythm. No murmurs, rubs, or gallops. Pulmonary: No respiratory distress. No cyanosis. Bilateral lung fiels are clear to auscultation. Abdominal: Non-distended. Non-rigid. Bowels sounds are present in all four quadrants. No guarding or rebound. HEENT: Head is atraumatic. Conjunctivae not reddened. No tearing. PERRL. EOMI. Orbits atraumatic. No periorbital swelling or erythema. Oropharynx is without erythema, swelling, or exudates. Large cavity to the right lower molar tooth. No focal abscess. No trismus. No drooling. No submandibular or sublingual swelling. No dysphonia dyspnea or dysphagia Neck: Supple. No adenopathy. No meningismus. Dermatologic: Warm with good turgor. No rash. Atraumatic. Chest: Atraumatic. No chest wall tenderness to palpation. Musculoskeletal: Moves all extremities well. No range of motion deficits. no muscular or joint tenderness. No paraspinal muscle tenderness. no midline spinal tenderness or step-off. Genitourinary: Examination deferred Neurologic: No gross neurologic deficits. Psychiatric: Normal mood. Course - Vital Signs Vital signs: Temp Pulse Resp BP Pulse Ox 98.4 F 75 18 182/95 H 96 04/19/20 00:58 04/19/20 00:58 04/19/20 00:58 04/19/20 00:58 04/19/20 00:58 Discharge - Discharge Clinical Impression: Pain, dental, Elevated blood pressure reading Condition: Good Disposition: HOME, SELF-CARE Instructions: [facility], Penicillin V K ([facility]), Toothache ([facility]), Oral Narcotic Medication ([facility]) Prescriptions: Penicillin V Potassium [Penicillin Vk 500 mg Tablet] 500 mg PO QID 10 Days #40 tablet
== END 2020-04-19 01:26 | disposition home or self-care (01) ==
LOC: ER 00:50
DX: K02.9 Dental caries, unspecified (principal); R03.0 Elevated blood-pressure reading, without diagnosis of hypertension; F17.200 Nicotine dependence, unspecified, uncomplicated
CPT/HCPCS: 99284